=== PATIENT | female | born 1945 | race Caucasian/White ===

== ENCOUNTER 2017-09-21 07:50 | Inpatient (IN) | payer OTHER ==
[~2017-09-21] VITALS: Ht 162.6 cm; Wt 125.2 kg
[~2017-09-21 07:50] MED LIST: AMILORIDE HCL5 MG PO; CLINDAMYCIN HC300 MG PO; COMBIVENT RESPIM4 GM INH; FENOFIBRATE54 MG PO; FLUCONAZOLE100 MG PO; FOLIC ACID1 MG PO; FUROSEMIDE20 MG PO; GABAPENTIN300 MG PO; GLIMEPIRIDE4 MG PO; HYDROCODON-ACE1 EA11 PO; LANTUS 3ML100 UNITS/ SQ; LEVAQUIN500 MG PO; LOSARTAN POTAS100 MG PO; MEDROL4 MG; METFORMIN HCL500 MG PO; METOPROLOL SUCC50 MG PO; NOVOLIN N100 UNIT/1 SQ; NOVOLOG100 UNIT/1 SQ; OMEPRAZOLE20 MG PO; OXYBUTYNIN CHLOR5 MG PO; PENICILLIN V P500 MG PO; POTASSIUM CHLO10 ME1 PO; SIMVASTATIN40 MG PO; SYMBICORT; SYMBICORT 16010.2 GM INH; VENTOLIN HFA18 GM INH; VERAPAMIL ER180 M1 PO; ZAFIRLUKAST20 MG PO; ZETIA10 MG PO
[2017-09-21 09:05] LABS: BASOPHILS % 0.5 % (0.0-1.0); EOSINOPHILS # (AUTO) 0.1 (0.0-0.4); EOSINOPHILS % 1.9 % (0.0-6.0); HEMATOCRIT 32.2 % (34.2-44.1); HEMOGLOBIN 10.1 g/dL (12.0-16.0); LYMPHOCYTES # (AUTO) 1.2 (1.0-3.2); LYMPHOCYTES % 15.7 % (18.0-39.1); MEAN CORPUSCULAR HGB CONC 31.4 g/dL (31-35); MEAN CORPUSCULAR VOLUME 86.1 fL (81-99); MONOCYTES # (AUTO) 0.7 (0.2-0.8); MONOCYTES % 8.8 % (4.4-11.3); NEUTROPHILS # (AUTO) 5.5 (2.1-6.9); NEUTROPHILS % 72.4 % (38.7-80.0); PLATELET COUNT 250 x10e3/uL (140-360); RED BLOOD COUNT 3.74 x10e6/uL (3.6-5.1); RED CELL DISTRIBUTION WIDTH 15.9 % (11.7-14.4)
[2017-09-21 09:17] LABS: ALBUMIN 2.8 g/dL (3.5-5.0); ALBUMIN/GLOBULIN RATIO 0.8 (0.8-2.0); ANION GAP 12.7 mmol/L (8-16); CALCIUM 9.1 mg/dL (8.4-10.2); CREATININE, SERUM 2.24 mg/dL (0.57-1.11); POTASSIUM 3.7 mmol/L (3.5-5.1)
--- NOTE | 2017-09-21 09:36 | Diagnostic Imaging Report ---
PROCEDURE: A single AP view of the chest. COMPARISON: Portable chest 08/14/2017. INDICATIONS: SHORT OF BREATH FINDINGS: Lines/tubes: None. Lungs: Bibasilar airspace opacities. No parenchymal mass. Pleura: Small left pleural effusion. No pneumothorax. Heart and mediastinum: The heart and the mediastinum are unremarkable. Bones: No acute bony abnormality. Degenerative changes of the thoracic spine. IMPRESSION: Bibasilar airspace opacities may represent atelectasis or a developing pneumonia. Small left pleural effusion. Dictated by: Arvind Ibarra M.D. on 09/21/2017 at 9:45 Electronically approved by: Arvind Ibarra M.D. on 09/21/2017 at 9:45
[2017-09-21] MEDS ORDERED: FAMOTIDINE 20 MG/2 ML VIAL IV STA (09:59)
[2017-09-21] MEDS ORDERED: SODIUM CHLORIDE 0.9% 1000ML 1,000 ML IV STA (09:59)
[2017-09-21] MEDS ORDERED: ASPIRIN 81 MG CHEW TAB PO ONE (10:00)
[2017-09-21] MEDS ORDERED: METHYLPREDNISOLONE SOD SUCC 125 MG/2ML VIAL IV STA (10:04)
[2017-09-21] MEDS ORDERED: ALBUTEROL SULF 0.083% NEB SOLN 3 ML NEB NEB STA (10:04)
[2017-09-21] MEDS ORDERED: IPRATROPIUM BROMIDE 0.02% 2.5 ML NEB NEB STA (10:04)
[2017-09-21] MEDS ORDERED: PIPER-TAZ 3.375 GM/NS 50 ML 50 ML IV STA (10:04)
[2017-09-21] MEDS ORDERED: IPRATROPIUM BROMIDE 0.02% 2.5 ML NEB NEB PRN (10:15)
[2017-09-21] MEDS ORDERED: DEXTROSE 50% SYRINGE 50 ML IV PRN (10:15)
[2017-09-21] MEDS ORDERED: ALBUTEROL SULF 0.083% NEB SOLN 3 ML NEB NEB PRN (10:15)
[2017-09-21 10:23] LABS: MAGNESIUM 1.9 MG/DL (1.3-2.1)
[2017-09-21 10:26] LABS: INR 0.95; PARTIAL THROMBOPLASTIN TIME 30.3 seconds (23.8-35.5); PROTHROMBIN TIME 13.1 seconds (11.9-14.5)
[2017-09-21 10:29] LABS: TROPONIN I 0.022 ng/mL (0-0.300)
[2017-09-21] MEDS ORDERED: FUROSEMIDE INJ 10 MG/ML 4 ML VIAL IV ONE (11:00)
[2017-09-21] MEDS: INSULIN REGULAR, HUMAN 100 UNIT/1 ML 3ML VIAL SQ SCH ×3 (11:30→21:00)
[2017-09-21 12:16] LABS: BILIRUBIN,URINE NEGATIVE (NEGATIVE); CLARITY,URINE CLOUDY (CLEAR); COLOR,URINE YELLOW (YELLOW); KETONES,URINE NEGATIVE (NEGATIVE); LEUKOCYTE ESTERASE ,URINE 1+ (NEGATIVE); PROTEIN,URINE DIPSTICK 3+ (NEGATIVE); URINE UROBILINOGEN 0.2 mg/dL (0.2 - 1)
[2017-09-21 12:19] LABS: NITRITE,URINE POSITIVE (NEGATIVE)
[2017-09-21 12:54] LABS: BACTERIA,URINE MANY /HPF; EPITHELIAL CELLS,URINE FEW /LPF; WBC,URINE (MAN) 21-50 /HPF (0-5)
[2017-09-21] MEDS: IPRATROPIUM BROMIDE 0.02% 2.5 ML NEB NEB SCH ×2 (13:00→20:02)
[2017-09-21] MEDS: METHYLPREDNISOLONE SOD SUCC 40 MG/ML VIAL IV SCH ×2 (13:05→21:31)
[2017-09-21 13:41] VITALS: BP 169/77
[2017-09-21] MEDS: POTASSIUM CHLORIDE 10 MEQ TABCR PO SCH (16:17)
[2017-09-21 16:23] VITALS: BP 139/63
[2017-09-21] MEDS: PIPER-TAZ 3.375 GM/NS 50 ML 50 ML IV SCH ×2 (16:52→23:39)
[2017-09-21 17:01] LABS: CREATINE KINASE MB 2.5 ng/mL (0.00-5.00); TROPONIN I 0.031 ng/mL (0-0.300)
[2017-09-21 20:09] VITALS: BP 172/72
[2017-09-22 00:34] VITALS: BP 190/77
[2017-09-22] MEDS: IPRATROPIUM BROMIDE 0.02% 2.5 ML NEB NEB SCH ×2 (02:10→07:07)
[2017-09-22 04:58] VITALS: BP 164/72
[2017-09-22] MEDS: PIPER-TAZ 3.375 GM/NS 50 ML 50 ML IV SCH (05:48)
[2017-09-22] MEDS: METHYLPREDNISOLONE SOD SUCC 40 MG/ML VIAL IV SCH (05:48)
--- NOTE | 2017-09-22 06:13 | Consultation ---
DATE OF CONSULTATION: INITIAL VISIT This is not a consult, this is an established patient in our clinic. Her urologist in our clinic is Dr. Cj Yancey. The patient has been treated for malfunction of the bladder and she does have nerve stimulation implant. Presently, she does have a Alexandra catheter emergency room when she presented with exacerbation of obstructive pulmonary disease. She was complaining about shortness of breath. PAST HISTORY: Significant for: 1. Congestive heart failure. 2. COPD. 3. Coronary artery disease. 4. Obesity. 5. Hypertension. 6. Diabetes mellitus. 7. Emphysema. 8. Mild renal failure. 9. Shortness of breath is present. MEDICATIONS: See MAR. ALLERGIES TO MEDICATIONS: SEE NOV. SOCIAL HISTORY: Never smoked. No use of alcohol or illicit drugs. PHYSICAL EXAMINATION: GENERAL: Patient is alert and oriented x3. Presently, does not seem to be in very severe respiratory distress. VITAL SIGNS: Blood pressure 135/85, pulse 88, temperature 97.2, respirations 20. HEAD: Symmetric. EYES: Normal movement. NECK: No masses. CHEST: No respiratory distress. HEART: Regular heartbeat. ABDOMEN: Soft. No palpable masses. EXTERNAL GENITALIA: Atrophic. Alexandra catheter in place. EXTREMITIES: Edema +1 bilaterally. NEURO: Oriented x3. LABORATORY DATA: Reviewed. Creatinine 2.24, albumin 2.8. IMPRESSION: 1. Congestive heart failure. 2. Chronic obstructive pulmonary disease. 3. Obesity. 4. Neurological bladder dysfunction. 5. Hypertension. 6. Diabetes mellitus. 7. Coronary artery disease. 8. Emphysema. 9. Renal failure. PLAN: I would recommend if patient is mobile to remove the Alexandra for trial of voiding tomorrow. Thank you. Will follow as needed. Job#: [id number]
[2017-09-22 07:44] VITALS: BP 135/77
[2017-09-22 08:16] LABS: BASOPHILS % 0.1 % (0.0-1.0); HEMATOCRIT 33.7 % (34.2-44.1); HEMOGLOBIN 10.4 g/dL (12.0-16.0); LYMPHOCYTES # (AUTO) 0.5 (1.0-3.2); LYMPHOCYTES % 6.8 % (18.0-39.1); MEAN CORPUSCULAR HEMOGLOBIN 26.7 pg (28-32); MEAN CORPUSCULAR HGB CONC 30.9 g/dL (31-35); MEAN CORPUSCULAR VOLUME 86.4 fL (81-99); MONOCYTES # (AUTO) 0.2 (0.2-0.8); MONOCYTES % 2.5 % (4.4-11.3); NEUTROPHILS # (AUTO) 7.1 (2.1-6.9); NEUTROPHILS % 88.3 % (38.7-80.0); PLATELET COUNT 293 x10e3/uL (140-360); RED CELL DISTRIBUTION WIDTH 15.8 % (11.7-14.4)
[2017-09-22 08:43] LABS: CREATINE KINASE MB 3.1 ng/mL (0.00-5.00); TROPONIN I 0.035 ng/mL (0-0.300)
[2017-09-22 08:51] LABS: ANION GAP 14.6 mmol/L (8-16); CALCIUM 8.7 mg/dL (8.4-10.2); CREATININE, SERUM 2.31 mg/dL (0.57-1.11); POTASSIUM 3.6 mmol/L (3.5-5.1)
[2017-09-22] MEDS ORDERED: FUROSEMIDE 40 MG TAB PO SCH (09:00)
[2017-09-22] MEDS ORDERED: METOPROLOL SUCCINATE 50 MG TAB XL PO SCH (09:00)
[2017-09-22] MEDS ORDERED: LOSARTAN POTASSIUM 100 MG TAB PO SCH (09:00)
[2017-09-22] MEDS: INSULIN REGULAR, HUMAN 100 UNIT/1 ML 3ML VIAL SQ SCH ×4 (09:02→20:56)
[2017-09-22] MEDS: POTASSIUM CHLORIDE 10 MEQ TABCR PO SCH (09:34)
[2017-09-22 10:22] LABS: BAND NEUTROPHILS % (MANUAL) 1 %; LYMPHOCYTES % (MANUAL) 4 % (19-48); MONOCYTES % (MANUAL) 6 % (3.4-9.0); NEUTROPHILS % (MANUAL) 89 % (40-74); PLATELET ESTIMATE ADEQUATE; PLATELET MORPHOLOGY COMMENT NORMAL; RBC MORPHOLOGY COMMENT NORMAL
[2017-09-22 11:35] VITALS: BP 182/74
[2017-09-22] MEDS ORDERED: PREDNISONE 20 MG TAB PO SCH (12:15)
[2017-09-22] MEDS: CEFEPIME HCL 1 GM VIAL IV SCH (13:00)
[2017-09-22] MEDS ORDERED: FUROSEMIDE INJ 10 MG/ML 4 ML VIAL IV ONE (13:00)
[2017-09-22] MEDS ORDERED: TRIAMCINOLONE ACET 40 MG/ML VIAL IM ONE (13:00)
[2017-09-22] MEDS: VERAPAMIL HCL 180 MG TBER PO SCH (13:00)
[2017-09-22] MEDS: WATER STERILE 10 ML VIAL IV SCH (13:00)
[2017-09-22] MEDS: DOXYCYCLINE HYCLATE TABLET 100 MG TAB PO SCH ×2 (13:00→16:56)
--- NOTE | 2017-09-22 13:07 | History and Physical ---
CHIEF COMPLAINT: Shortness of breath. HISTORY OF PRESENT ILLNESS: Patient is a 72-year-old female on hospice care. Came in with acute exacerbation of COPD. The patient is otherwise stable. The breathing is much better now with nebulizer and steroids. The patient is comfortable. PAST MEDICAL HISTORY: Baseline diastolic dysfunction, congestive heart failure with pulmonary hypertension. Advanced COPD. Diabetes. Hypertension. Recurrent urinary tract infection. Obesity. Medical debility. PAST SURGICAL HISTORY: Noncontributory. SOCIAL HISTORY: Patient does not smoke. She lives at home with her family. ALLERGIES: ENALAPRIL. HOME MEDICATIONS: List reviewed. REVIEW OF SYSTEMS: Shortness of breath and cough. PHYSICAL EXAMINATION: VITAL SIGNS: Temperature is 98. Blood pressure 135/77. Pulse rate 93. Respiration 18. GENERAL: The patient is not in acute distress now. She is awake. HEENT: Normocephalic, atraumatic. Sclerae anicteric. NECK: Supple grossly. PULMONARY: Diminished breath sounds with some wheezing, much improved. CARDIOVASCULAR: S1/S2. Regular rate and rhythm. ABDOMEN: Soft, obese. EXTREMITIES: 1+ edema chronically. NEUROLOGIC: No focal deficit. LABORATORY: Sodium 144, potassium 3.6, chloride 107, bicarb 26, BUN 30, creatinine 2.3. Glucose is 300. WBC 7.9. Hemoglobin 10.4. Hematocrit 33.7. Platelets are 293. IMPRESSION: 1. Acute exacerbation of chronic obstructive pulmonary disease. 2. Recurrent urinary tract infection. PLAN: Continue nebulizer treatment and steroids. Resume home medication. Will monitor the patient closely. Cefepime 1 gram q.12. We will monitor the patient and check the urine culture. Job#: [id number] EV
[2017-09-22] MEDS: ALBUTEROL/IPRATROPIUM 3 ML NEB NEB SCH ×2 (13:10→19:30)
[2017-09-22 15:38] VITALS: BP 150/67
[2017-09-22] MEDS: ZAFIRLUKAST 20 MG PO SCH (16:56)
[2017-09-22 20:00] VITALS: BP 150/65
[2017-09-22] MEDS: INSULIN DETEMIR 100 UNIT/ML PEN SQ SCH (20:55)
[2017-09-22] MEDS ORDERED: SIMVASTATIN 40 MG TAB PO SCH (21:00)
[2017-09-22] MEDS ORDERED: INSULIN DETEMIR 100 UNIT/ML PEN SQ SCH (21:00)
[2017-09-23] MEDS: ALBUTEROL/IPRATROPIUM 3 ML NEB NEB SCH ×5 (01:05→23:30)
[2017-09-23] MEDS: CEFEPIME HCL 1 GM VIAL IV SCH ×2 (01:40→13:01)
[2017-09-23] MEDS: WATER STERILE 10 ML VIAL IV SCH ×2 (01:40→13:03)
[2017-09-23 04:00] VITALS: BP 137/63
[2017-09-23] MEDS: ALBUTEROL/IPRATROPIUM 3 ML NEB NEB PRN (05:14)
[2017-09-23] MEDS ORDERED: SERTRALINE HCL50 MG PO (06:02)
[2017-09-23] MEDS: ALPRAZOLAM 0.25 MG TAB PO PRN ×4 (08:20→22:12)
[2017-09-23 08:30] LABS: BASOPHILS % 0.1 % (0.0-1.0); HEMATOCRIT 35.7 % (34.2-44.1); LYMPHOCYTES # (AUTO) 0.6 (1.0-3.2); LYMPHOCYTES % 3.7 % (18.0-39.1); MEAN CORPUSCULAR HEMOGLOBIN 26.7 pg (28-32); MEAN CORPUSCULAR HGB CONC 30.8 g/dL (31-35); MEAN CORPUSCULAR VOLUME 86.7 fL (81-99); MONOCYTES # (AUTO) 0.9 (0.2-0.8); MONOCYTES % 5.7 % (4.4-11.3); NEUTROPHILS # (AUTO) 14.2 (2.1-6.9); NEUTROPHILS % 88.8 % (38.7-80.0); PLATELET COUNT 365 x10e3/uL (140-360); RED BLOOD COUNT 4.12 x10e6/uL (3.6-5.1); RED CELL DISTRIBUTION WIDTH 15.9 % (11.7-14.4)
[2017-09-23] MEDS ORDERED: IPRATROPIUM BROMIDE 0.02% 2.5 ML NEB ONE (08:58)
[2017-09-23] MEDS ORDERED: ALBUTEROL SULF 0.083% NEB SOLN 3 ML NEB ONE (08:58)
[2017-09-23 08:59] LABS: ANION GAP 14.5 mmol/L (8-16); CALCIUM 9.3 mg/dL (8.4-10.2); CREATININE, SERUM 2.26 mg/dL (0.57-1.11); POTASSIUM 3.5 mmol/L (3.5-5.1)
[2017-09-23] MEDS: ZAFIRLUKAST 20 MG PO SCH ×2 (09:00→17:00)
[2017-09-23] MEDS: METHYLPREDNISOLONE SOD SUCC 40 MG/ML VIAL IV SCH ×2 (09:08→17:00)
[2017-09-23] MEDS ORDERED: FUROSEMIDE INJ 10 MG/ML 4 ML VIAL IV ONE (09:15)
[2017-09-23 09:23] LABS: ABG HCO3 32 mmol/L (23-28); ABG PCO2 70 mmHg (41-51); ABG PH 7.27 (7.31-7.41); ABG PO2 381 mmHg (80-105)
[2017-09-23] MEDS: INSULIN REGULAR, HUMAN 100 UNIT/1 ML 3ML VIAL SQ SCH ×4 (10:00→21:20)
[2017-09-23] MEDS: VERAPAMIL HCL 180 MG TBER PO SCH (10:30)
[2017-09-23] MEDS: FOLIC ACID 1 MG TAB PO SCH (10:30)
[2017-09-23] MEDS: DOXYCYCLINE HYCLATE TABLET 100 MG TAB PO SCH ×2 (10:30→17:00)
[2017-09-23 16:00] VITALS: BP 194/80
[2017-09-23] MEDS: ENOXAPARIN 30 MG/0.3 ML SYR SC SCH (17:00)
[2017-09-23 20:00] VITALS: BP 138/65
[2017-09-23] MEDS: INSULIN DETEMIR 100 UNIT/ML PEN SQ SCH (21:20)
[2017-09-24] VITALS: BP 178/72
[2017-09-24] MEDS: CEFEPIME HCL 1 GM VIAL IV SCH ×2 (01:02→13:13)
[2017-09-24] MEDS: METHYLPREDNISOLONE SOD SUCC 40 MG/ML VIAL IV SCH ×3 (01:02→21:50)
[2017-09-24] MEDS: WATER STERILE 10 ML VIAL IV SCH ×2 (01:03→13:13)
[2017-09-24 04:00] VITALS: BP 119/74
[2017-09-24] MEDS: INSULIN REGULAR, HUMAN 100 UNIT/1 ML 3ML VIAL SQ SCH ×4 (07:30→21:50)
[2017-09-24 07:34] LABS: BASOPHILS % 0.1 % (0.0-1.0); HEMOGLOBIN 10.3 g/dL (12.0-16.0); LYMPHOCYTES # (AUTO) 0.4 (1.0-3.2); LYMPHOCYTES % 5.5 % (18.0-39.1); MEAN CORPUSCULAR HGB CONC 31.2 g/dL (31-35); MEAN CORPUSCULAR VOLUME 86.4 fL (81-99); MONOCYTES # (AUTO) 0.2 (0.2-0.8); NEUTROPHILS # (AUTO) 6.5 (2.1-6.9); NEUTROPHILS % 89.3 % (38.7-80.0); PLATELET COUNT 265 x10e3/uL (140-360); RED BLOOD COUNT 3.82 x10e6/uL (3.6-5.1); RED CELL DISTRIBUTION WIDTH 15.3 % (11.7-14.4)
[2017-09-24 07:58] VITALS: BP 189/79
[2017-09-24] MEDS: ALBUTEROL/IPRATROPIUM 3 ML NEB NEB PRN (08:20)
[2017-09-24 08:58] LABS: ANION GAP 13.6 mmol/L (8-16); CALCIUM 9.3 mg/dL (8.4-10.2); CREATININE, SERUM 2.03 mg/dL (0.57-1.11); POTASSIUM 3.6 mmol/L (3.5-5.1)
[2017-09-24] MEDS: ZAFIRLUKAST 20 MG PO SCH ×2 (09:00→17:00)
--- NOTE | 2017-09-24 09:12 | Consultation ---
DATE OF CONSULTATION: PULMONARY CONSULTATION REASON FOR THE CONSULT: Shortness of breath. HPI: Ms. Martinez is a 72-year-old female. She was on hospice care. She is DNR. She presented with worsening shortness of breath, coughing, and wheezing. She denies any chest pain, nausea, vomiting. The symptoms started 3 to 4 days ago and progressively got worse. She reports that breathing has improved since she has been using BiPAP. REVIEW OF SYSTEMS: GENERAL: Denies any fever or chills. HEAD: Denies any head trauma or head injury. ENT: Denies any earache, nosebleed. CVS: Denies any chest pain. RESPIRATORY: As in HPI. GI: Denies any nausea, vomiting. Rest of the review of systems are negative except as in HPI. PAST MEDICAL HISTORY: Hypertension, diastolic heart failure, and also has congestive heart failure with pulmonary hypertension per the note. She sees Dr. Jamison Junior as an outpatient for cardiology. PAST SURGICAL HISTORY: Noncontributory. FAMILY AND SOCIAL HISTORY: She smoked for 35 years, quit 7 years ago. She lives with her daughters. ALLERGIES: ENALAPRIL. PHYSICAL EXAMINATION: VITAL SIGNS: Temperature 97.2, pulse of 93, blood pressure 150/65, respiratory rate is 20 to 24 to 26 per minute. HEENT: Head atraumatic, normocephalic. Pupils are reactive. Patient is on BiPAP, unable to do oral exam. NECK: No JVD. CHEST: Crackles on the bases and reduced air entry, occasional wheezing. HEART: S1 and S2 audible. ABDOMEN: Soft, nontender, nondistended. EXTREMITIES: No clubbing, cyanosis, or edema. NEUROLOGICAL: She is awake and alert. Following commands. Chest x-ray, I have reviewed the images showing bilateral alveolar congestion. She underwent a CT of the chest on the 10 of August and I have reviewed the images. At that time, it also showed small bilateral effusion and atelectasis. Urine culture is growing gram-negative savi. ASSESSMENT/PLAN: Ms. Martinez is a 72-year-old female, who presented with worsening shortness of breath. Patient was recently admitted around 08 of August and was discharged on 13 of August. She was admitted then with similar complaints of shortness of breath. CURRENT PROBLEMS: 1. Acute exacerbation of chronic obstructive pulmonary disease versus worsening diastolic heart failure. I will continue the patient on nebulizer treatment. Her baseline creatinine was around 2 and her creatinine is around that level. The shortness of breath can be a combination of fluid overload, renal failure, and chronic obstructive pulmonary disease exacerbation. I will continue the patient on Solu-Medrol. Patient already received a dose of Lasix today. Continue the patient on bilevel positive airway pressure. 2. Patient is do not resuscitate and we can continue bilevel positive airway pressure. Will keep the patient in intermediate medical care unit. 3. Continue cefepime and doxycycline as ordered. Chest x-ray is showing bibasilar opacities and atelectasis, most part it is unchanged from her previous x-ray; however, because of recent hospitalization and leukocytosis, pneumonia cannot be ruled out. 4. Lovenox subcutaneously for deep venous thrombosis prophylaxis. Thank you for this consult. Patient will be seen by Dr. Julius Junior from tomorrow as she was seen by him during last admission. Job#: [id number]
[2017-09-24] MEDS: ALPRAZOLAM 0.25 MG TAB PO PRN ×2 (09:42→13:42)
[2017-09-24] MEDS: FOLIC ACID 1 MG TAB PO SCH (09:53)
[2017-09-24] MEDS: VERAPAMIL HCL 180 MG TBER PO SCH (09:53)
[2017-09-24] MEDS: DOXYCYCLINE HYCLATE TABLET 100 MG TAB PO SCH ×2 (09:53→17:00)
[2017-09-24 11:34] VITALS: BP 167/80
[2017-09-24 12:16] LABS: BAND NEUTROPHILS % (MANUAL) 1 %; LYMPHOCYTES % (MANUAL) 5 % (19-48); METAMYELOCYTES % (MANUAL) 1 % (0-0); MONOCYTES % (MANUAL) 3 % (3.4-9.0); NEUTROPHILS % (MANUAL) 90 % (40-74); PLATELET ESTIMATE ADEQUATE; PLATELET MORPHOLOGY COMMENT NORMAL; RBC MORPHOLOGY COMMENT NORMAL
[2017-09-24 16:02] VITALS: BP 185/78
[2017-09-24] MEDS: ENOXAPARIN 30 MG/0.3 ML SYR SC SCH (17:00)
[2017-09-24 20:00] VITALS: BP 177/75
[2017-09-24] MEDS: ALBUTEROL/IPRATROPIUM 3 ML NEB NEB SCH (20:15)
[2017-09-24] MEDS: INSULIN DETEMIR 100 UNIT/ML PEN SQ SCH (21:51)
[2017-09-24] MEDS ORDERED: METOPROLOL TARTRATE 25 MG TAB PO ONE (22:15)
[2017-09-25] VITALS: BP 210/91
[2017-09-25] MEDS: WATER STERILE 10 ML VIAL IV SCH ×2 (02:30→14:35)
[2017-09-25] MEDS: CEFEPIME HCL 1 GM VIAL IV SCH ×2 (02:30→14:35)
[2017-09-25] MEDS: ALBUTEROL/IPRATROPIUM 3 ML NEB NEB SCH ×3 (03:52→14:08)
[2017-09-25 04:00] VITALS: BP 217/88
[2017-09-25] MEDS ORDERED: METOPROLOL TARTRATE 50 MG TAB PO ONE (04:45)
[2017-09-25] MEDS: ALPRAZOLAM 0.25 MG TAB PO PRN ×2 (05:50→17:50)
--- NOTE | 2017-09-25 06:22 | Consultation ---
DATE OF CONSULTATION: PULMONARY CONSULTATION CHIEF COMPLAINT: Dyspnea and congestion. HISTORY OF PRESENT ILLNESS: The patient is a 72-year-old woman. She has a history of COPD. She uses oxygen at home, as well as inhalers. She also required hospitalization at [facility] in August for systolic heart failure. The patient now returns with worsening dyspnea. She notes some cough and congestion. She does not complain of fever or chest pain. PAST SURGICAL HISTORY 1. Status post cholecystectomy. 2. Status post hysterectomy. 3. The patient is status post bladder surgery. SOCIAL HISTORY: The patient quit smoking. She is not an active drinker. FAMILY HISTORY: The patient has a history of lung cancer and liver cancer in the family. ALLERGIES: THE PATIENT IS ALLERGIC TO ENALAPRIL. REVIEW OF SYSTEMS: The patient is afebrile. She does not complain of headache or chest pain. She is not having any sore throat. She did not complain of neck pain. She denies chest pain. She notes some dyspnea and congestion, although she feels better than yesterday. She has a nonproductive cough. She is not having any abdominal pain. There is no nausea or vomiting. She has no leg edema. PHYSICAL EXAMINATION VITAL SIGNS: The patient is afebrile. The blood pressure is running at 189/79, the saturation is 98% on BiPAP. Pulse is 73 and respiratory rate is 20. HEENT: Shows no facial swelling or erythema. The nasal mucosa is normal. The oropharynx is normal. LYMPHATIC: Shows no submandibular, cervical or supraclavicular adenopathy. CARDIAC: Reveals a regular rate and rhythm with a normal S1 and S2. There are no murmurs or rubs. LUNGS: Auscultation of the lungs reveals rhonchus breath sounds bilaterally. There is no wheezing. ABDOMEN: Soft and nontender. There is no rebound or guarding. EXTREMITIES: Shows 1-2+ leg edema. LABORATORY DATA: The urinalysis shows 21-50 white blood cells. The creatinine is 2.24 with a normal electrolyte panel. The beta naturetic peptide is 452. Influenza swabs are negative. The blood gas is 7.27, 73, 81, and 32. RADIOGRAPHIC DATA: The chest x-ray shows bilateral airspace opacities and small pleural effusion. Prior CT scan from August showed bilateral pleural effusions and cephalization consistent with heart failure. IMPRESSION 1. [id number] systolic heart failure. 2. Chronic obstructive pulmonary disease. 3. [id number] respiratory failure. 4. Acute kidney injury. 5. Diabetes. 6. Urinary tract infection. PLAN 1. We will continue the diuresis. Patient is negative and has improved with this. 2. Repeat the chest x-ray along with electrolytes tomorrow. 3. Review prior echocardiogram and cardiology evaluation. 4. Solu-Medrol for COPD exacerbation. 5. Bronchodilators. 6. Patient was on BiPAP. Hopefully, we can switch to a nasal cannula. 7. Patient is DNR. Job#: [id number] RI
[2017-09-25 06:50] LABS: BASOPHILS % 0.1 % (0.0-1.0); HEMATOCRIT 36.4 % (34.2-44.1); HEMOGLOBIN 11.3 g/dL (12.0-16.0); LYMPHOCYTES # (AUTO) 0.4 (1.0-3.2); LYMPHOCYTES % 4.5 % (18.0-39.1); MEAN CORPUSCULAR HEMOGLOBIN 26.8 pg (28-32); MEAN CORPUSCULAR VOLUME 86.5 fL (81-99); MONOCYTES # (AUTO) 0.5 (0.2-0.8); MONOCYTES % 4.6 % (4.4-11.3); NEUTROPHILS # (AUTO) 8.6 (2.1-6.9); NEUTROPHILS % 87.9 % (38.7-80.0); PLATELET COUNT 318 x10e3/uL (140-360); RED BLOOD COUNT 4.21 x10e6/uL (3.6-5.1); RED CELL DISTRIBUTION WIDTH 15.5 % (11.7-14.4)
[2017-09-25 07:13] LABS: ALBUMIN 2.6 g/dL (3.5-5.0); ALBUMIN/GLOBULIN RATIO 0.7 (0.8-2.0); ANION GAP 11.5 mmol/L (8-16); CALCIUM 9.1 mg/dL (8.4-10.2); CREATININE, SERUM 1.9 mg/dL (0.57-1.11); POTASSIUM 3.5 mmol/L (3.5-5.1)
[2017-09-25] MEDS: INSULIN REGULAR, HUMAN 100 UNIT/1 ML 3ML VIAL SQ SCH ×4 (07:30→21:00)
[2017-09-25 07:40] VITALS: BP 218/87
[2017-09-25 08:33] LABS: BAND NEUTROPHILS % (MANUAL) 1 %; LYMPHOCYTES % (MANUAL) 6 % (19-48); MONOCYTES % (MANUAL) 1 % (3.4-9.0); NEUTROPHILS % (MANUAL) 92 % (40-74); POIKILOCYTOSIS SLIGHT; RBC MORPHOLOGY COMMENT NORMAL
[2017-09-25 08:34] LABS: PLATELET ESTIMATE ADEQUATE; PLATELET MORPHOLOGY COMMENT NORMAL
[2017-09-25] MEDS ORDERED: HYDRALAZINE HCL 20 MG/ML VIAL IV PRN (09:00)
[2017-09-25] MEDS ORDERED: METOPROLOL TARTRATE 25 MG TAB PO SCH ×2 (09:00)
[2017-09-25] MEDS ORDERED: LABETALOL HCL 100 MG TAB PO SCH (09:00)
[2017-09-25] MEDS: ZAFIRLUKAST 20 MG PO SCH ×2 (09:00→17:00)
[2017-09-25] MEDS: METHYLPREDNISOLONE SOD SUCC 40 MG/ML VIAL IV SCH ×2 (09:56→21:14)
[2017-09-25] MEDS: FOLIC ACID 1 MG TAB PO SCH (09:56)
[2017-09-25] MEDS: DOXYCYCLINE HYCLATE TABLET 100 MG TAB PO SCH ×2 (09:56→17:30)
[2017-09-25 12:05] VITALS: BP 179/77
[2017-09-25] MEDS: NIFEDIPINE CR 30 MG TAB PO SCH (14:48)
[2017-09-25 16:15] VITALS: BP 157/84
--- NOTE | 2017-09-25 16:39 | Diagnostic Imaging Report ---
PROCEDURE: Frontal and lateral views of the chest. COMPARISON: 09/21/2017 INDICATIONS: COPD FINDINGS: Lines/tubes: None. Lungs: Diffuse interstitial opacities. Left basilar atelectasis/consolidation. Pleura: Moderate left pleural effusion, slightly larger than on the prior examination. Heart and mediastinum: Mild cardiomegaly. Bones: Chronic appearing deformity of the right humeral head may be related to trauma. IMPRESSION: Interstitial opacities with left pleural effusion and left basilar atelectasis. Volume overload is the favored diagnosis. Dictated by: Ferdinand Harris M.D. on 09/25/2017 at 16:47 Electronically approved by: Ferdinand Harris M.D. on 09/25/2017 at 16:47
[2017-09-25] MEDS: ENOXAPARIN 30 MG/0.3 ML SYR SC SCH (17:30)
[2017-09-25] MEDS: ALBUTEROL/IPRATROPIUM 3 ML NEB NEB PRN (19:05)
[2017-09-25 20:00] VITALS: BP 162/71
[2017-09-25] MEDS: INSULIN DETEMIR 100 UNIT/ML PEN SQ SCH (21:14)
[2017-09-26] VITALS: BP 138/65
[2017-09-26] MEDS: ALPRAZOLAM 0.25 MG TAB PO PRN ×4 (00:29→19:18)
[2017-09-26] MEDS: CEFEPIME HCL 1 GM VIAL IV SCH ×2 (01:30→13:27)
[2017-09-26] MEDS: WATER STERILE 10 ML VIAL IV SCH ×2 (01:30→13:27)
[2017-09-26] MEDS: INSULIN REGULAR, HUMAN 100 UNIT/1 ML 3ML VIAL SQ SCH ×4 (07:30→21:00)
[2017-09-26] MEDS: ALBUTEROL/IPRATROPIUM 3 ML NEB NEB SCH ×3 (07:30→21:50)
[2017-09-26 07:48] VITALS: BP 166/69
[2017-09-26] MEDS: ZAFIRLUKAST 20 MG PO SCH ×2 (09:00→17:00)
[2017-09-26] MEDS: FOLIC ACID 1 MG TAB PO SCH (09:45)
[2017-09-26] MEDS: METHYLPREDNISOLONE SOD SUCC 40 MG/ML VIAL IV SCH ×2 (09:45→22:11)
[2017-09-26] MEDS: NIFEDIPINE CR 30 MG TAB PO SCH (09:46)
[2017-09-26] MEDS: DOXYCYCLINE HYCLATE TABLET 100 MG TAB PO SCH ×2 (09:46→17:02)
[2017-09-26 11:33] VITALS: BP 164/76
[2017-09-26 16:24] VITALS: BP 165/70
[2017-09-26] MEDS: ENOXAPARIN 30 MG/0.3 ML SYR SC SCH (17:02)
[2017-09-26 20:00] VITALS: BP 151/71
[2017-09-26] MEDS: INSULIN DETEMIR 100 UNIT/ML PEN SQ SCH (21:00)
[2017-09-27] VITALS: BP 157/69
[2017-09-27] MEDS: ALPRAZOLAM 0.25 MG TAB PO PRN ×4 (01:54→17:19)
[2017-09-27] MEDS: WATER STERILE 10 ML VIAL IV SCH ×2 (02:30→13:10)
[2017-09-27] MEDS: CEFEPIME HCL 1 GM VIAL IV SCH ×2 (02:30→13:10)
[2017-09-27] MEDS: ALBUTEROL/IPRATROPIUM 3 ML NEB NEB SCH ×3 (02:50→13:40)
[2017-09-27 04:00] VITALS: BP 166/69
[2017-09-27] MEDS: INSULIN REGULAR, HUMAN 100 UNIT/1 ML 3ML VIAL SQ SCH ×3 (07:30→16:30)
[2017-09-27 08:21] VITALS: BP 182/71
[2017-09-27] MEDS: ZAFIRLUKAST 20 MG PO SCH ×2 (09:00→17:00)
[2017-09-27] MEDS: DOXYCYCLINE HYCLATE TABLET 100 MG TAB PO SCH ×2 (09:59→17:19)
[2017-09-27] MEDS: FOLIC ACID 1 MG TAB PO SCH (09:59)
[2017-09-27] MEDS: NIFEDIPINE CR 30 MG TAB PO SCH (09:59)
[2017-09-27] MEDS: METHYLPREDNISOLONE SOD SUCC 40 MG/ML VIAL IV SCH (09:59)
[2017-09-27 12:24] VITALS: BP 194/73
[2017-09-27] MEDS ORDERED: CEFDINIR300 MG PO (16:02)
[2017-09-27 16:23] VITALS: BP 190/80
[2017-09-27] MEDS: ENOXAPARIN 30 MG/0.3 ML SYR SC SCH (17:19)
--- NOTE | 2017-09-27 17:27 | Discharge Summary ---
FINAL DISCHARGE DIAGNOSES 1. Acute exacerbation of chronic obstructive pulmonary disease. 2. Hypertension. 3. Morbid obesity. 4. Urinary tract infection. 5. Pneumonia. CONSULTANTS: Pulmonary, urology. VITAL SIGNS: Temperature is 97.1, pulse 73, respiratory rate is 24 at baseline, blood pressure is 182/71 and pulse ox 100% on BiPAP. LAB FINDINGS: Show white count of 9.7, hemoglobin 11.3, hematocrit 36, platelets of 318,000. Chemistries are sodium is 146, potassium is 3.5. Bicarb is 32. Chloride is 107. BUN is 49 and creatinine is 1.9. Glucose is 169. LFTs were normal. Her troponins were negative x 3. Albumin is 2.6. MICROBIOLOGY: Urine culture was positive for E coli and sensitive to cephalosporins. Blood cultures were negative. IMAGING STUDIES: Chest x-ray showed some interstitial opacity with left pleural effusion, left basilar atelectasis. HOSPITAL COURSE: This is a 72-year-old female who came in with respiratory distress being treated for underlying acute exacerbation of COPD, pneumonia and found to have a UTI. Patient was on broad spectrum antibiotics. Blood cultures were negative. Urine culture positive E. coli. Patient will be discharged on oral antibiotics. Pulmonary was consulted for further assistance as well as urology. Patient is at baseline on BiPAP and is very tachypneic. In further discussion with the family as well as with case management, the patient was previously on hospice care and at this time the family wants to resume hospice care at home. We spoke with the medical power of incubator tender which all of the information is in the chart, and in further discussion, the family medical power of incubator tender agreed to hospice care at home. At this time, the patient will be discharged per family's wishes on hospice. On the day of discharge vital signs were stable. Labs were reviewed and were stable. Her condition is guarded. On the day of discharge, patient was seen and evaluated and examined thoroughly with no other issues. Patient will be discharged to hospice care as per family's wishes. DISCHARGE MEDICATIONS: See medicine reconciliation form. DISPOSITION: Hospice. CONDITION: Guarded. FOLLOWUP: Patient will be discharged to hospice care. DANILO HERRERA MD Job#: [id number] GH
== END 2017-09-27 17:23 | disposition hospice, home (50) | DRG 190 ==
LOC: ER 07:50 → ERHOLD 10:24 → IMCU 11:51 → OBSVTOIN 09-23 08:54 → MED/SURG3 09-23 12:38
PROVIDERS: ADMIT Internal Medicine; ATTEND Internal Medicine
DX: J44.0 Chronic obstructive pulmonary disease with (acute) lower respiratory infection (principal); J18.9 Pneumonia, unspecified organism; J96.20 Acute and chronic respiratory failure, unspecified whether with hypoxia or hypercapnia; N17.9 Acute kidney failure, unspecified; I50.33 Acute on chronic diastolic (congestive) heart failure; N39.0 Urinary tract infection, site not specified; E11.9 Type 2 diabetes mellitus without complications; I13.0 Hypertensive heart and chronic kidney disease with heart failure and stage 1 through stage 4 chronic kidney disease, or unspecified chronic kidney disease; B96.20 Unspecified Escherichia coli [E. coli] as the cause of diseases classified elsewhere; Z68.42 Body mass index [BMI] 45.0-49.9, adult; J44.1 Chronic obstructive pulmonary disease with (acute) exacerbation; E66.01 Morbid (severe) obesity due to excess calories; Z66 Do not resuscitate; N31.9 Neuromuscular dysfunction of bladder, unspecified; D50.9 Iron deficiency anemia, unspecified; N18.9 Chronic kidney disease, unspecified; D63.1 Anemia in chronic kidney disease
CPT/HCPCS: 36415; 36600; 71010; 71020; 80048; 80053; 81001; 82550; 82553; 82805; 82948; 83690; 83735; 83880; 84484; 85025; 85610; 85730; 87040; 87086; 87186; 87400; 93005; 94644; 94660; 96367; 96372; 96376; 99284; G0378; J0360; J0692; J1650; J1940; J2543; J2920; J2930; J3301; J7030